=== PATIENT | female | born 1940 | race Caucasian/White ===

== ENCOUNTER 2016-09-26 05:22 | Observation (INO) | payer OTHER ==
[2016-09-26] VITALS (8 sets, daily range): BP systolic 103–127; BP diastolic 66–74; PULSE 62–66; TEMP 36.5–37; O2SAT 94–97; Ht 167.6 cm; Wt 71.5 kg
[~2016-09-26] VITALS: Ht 167.6 cm; Wt 71.5 kg
--- NOTE | 2016-09-26 05:57 | EMERGENCY ROOM VISIT NOTE ---
History Report prepared by Presley: Jesse Kaba Under the Supervision of: Dr. Tamar Bojorquez M.D. First contact with patient: 05:29 Chief Complaint: CARDIAC ASSESSMENT Stated Complaint: TIGHTNING IN BACK,SHOULDER AND UP ALONG JAW History of Present Illness The patient is a 75 year old female who presents to the Emergency Room for an acute cardiac assessment. The patient woke up suddenly this morning with a burning sensation from her abdomen, through her chest and left shoulder and up to the left side of her jaw. The patient was also feeling tachycardic when she woke up. Her symptoms have improved although she still has some pain on the left side of her jaw. The patient also complains of bilateral hand tingling. She denies shortness of breath or pain when she takes a deep breath. She also denies fevers, cough or cold symptoms, or leg swelling. The patient has not noticed any tick bites recently. She had a full dose of aspirin this morning. The patient denies any medical problems other than osteoporosis. She has no history of blood clots or heart disease. The patient has never had a stress test. She is not a smoker. She follows up with Dr. Mathias. Source of History: patient Onset: this morning Position: other (cardiovascular) Quality: other (cardiac assessment) Timing: other (acute) Associated Symptoms: + numbness, No SOB Review of Systems See HPI for pertinent positives & negatives. A total of 10 systems reviewed and were otherwise negative. Past Medical & Surgical Medical Problems: (1) Osteoporosis Family History Patient reports no known family medical history. Social History Smoking Status: Never Smoker Marital Status: Housing Status: lives with family Current/Historical Medications Scheduled Ascorbic Acid (Ascorbic Acid), 1,000 MG PO DAILY Calcium (Chelated Calcium), 400 MG PO DAILY Cholecalciferol (Vitamin D3), 2,000 UNITS PO BID Coenzyme Q10 (Ubidecarenone) (Co Q 10), 100 MG PO DAILY Evening [place] Oil (Evening [place] Oil), 1 CAP PO DAILY Magnesium Oxide (Mag-Ox), 400 MG PO DAILY Milk Thistle (Silybum Marianum (Milk Thistle), Unknown Dose PO DAILY Misc Natural Products (Pycnogenol Complex), 1 TAB PO DAILY Multivitamin (Multivitamin), 3 TAB PO AMPM Council 3 Fatty Acids-Council 6 Fa (Council 3-6-9 Complex), 1 CAP PO DAILY Vitamin D & K (K2 Plus D3 100-1000 Mcg-Unit), 1 TAB PO DAILY Allergies Coded Allergies: No Known Allergies (Unverified , 09/26/16) Physical Exam Vital Signs Date Time Temp Pulse Resp B/P (MAP) Pulse Ox O2 Delivery O2 Flow Rate FiO2 09/26/16 08:04 78 20 143/91 95 Room Air 09/26/16 07:11 73 20 128/69 94 Room Air 09/26/16 06:08 73 20 135/58 95 Room Air 09/26/16 05:48 Room Air 09/26/16 05:44 79 09/26/16 05:26 36.6 91 18 145/66 97 Room Air Physical Exam Vital signs reviewed. General: Well-appearing female, in no significant distress. HEENT: No scleral icterus, PERRLA, neck supple. Atraumatic. Cardiovascular: Regular rate and rhythm, no extra sounds. Pulmonary: Clear to auscultation bilaterally, normal work of breathing. Abdomen: Soft, nontender, nondistended, positive bowel sounds. Musculoskeletal: Atraumatic, no peripheral edema. Neurologic: Patient awake alert and oriented x 3, full strength in all 4 extremities. Cranial nerves 2 through 12 grossly intact. Skin: Warm, dry, no rash Medical Decision & Procedures ER Provider Diagnostic Interpretation: X-ray results as stated below per interpretation by me and the radiologist: CHEST ONE VIEW PORTABLE CLINICAL HISTORY: chest pain dyspnea COMPARISON STUDY: No previous studies for comparison. FINDINGS: The bones soft tissues and hemidiaphragms are normal. The cardiomediastinal silhouette is normal. The lungs are clear. The pulmonary vasculature is normal. IMPRESSION: Negative chest. Electronically signed by: Ephraim Rivera M.D. 09/26/2016 6:54 AM Dictated Date/Time: 09/26/2016 6:54 AM Laboratory Results 09/26/16 05:40 Red Blood Count 5.17, Mean Corpuscular Volume 90.3, Mean Corpuscular Hemoglobin 31.1, Mean Corpuscular Hemoglobin Concent 34.5, Mean Platelet Volume 10.5, Neutrophils (%) (Auto) 34.3, Lymphocytes (%) (Auto) 52.2, Monocytes (%) (Auto) 9.6, Eosinophils (%) (Auto) 3.4, Basophils (%) (Auto) 0.4, Neutrophils # (Auto) 2.28, Lymphocytes # (Auto) 3.49, Monocytes # (Auto) 0.64, Eosinophils # (Auto) 0.23, Basophils # (Auto) 0.03 09/26/16 05:40 Test 09/26/16 05:40 09/26/16 06:06 White Blood Count 6.68 K/uL (4.8-10.8) Red Blood Count 5.17 M/uL (4.2-5.4) Hemoglobin 16.1 g/dL (12.0-16.0) Hematocrit 46.7 % (37-47) Mean Corpuscular Volume 90.3 fL (80-100) Mean Corpuscular Hemoglobin 31.1 pg (25-34) Mean Corpuscular Hemoglobin Concent 34.5 g/dl (32-36) Platelet Count 210 K/uL (130-400) Mean Platelet Volume 10.5 fL (7.4-10.4) Neutrophils (%) (Auto) 34.3 % Lymphocytes (%) (Auto) 52.2 % Monocytes (%) (Auto) 9.6 % Eosinophils (%) (Auto) 3.4 % Basophils (%) (Auto) 0.4 % Neutrophils # (Auto) 2.28 K/uL (1.4-6.5) Lymphocytes # (Auto) 3.49 K/uL (1.2-3.4) Monocytes # (Auto) 0.64 K/uL (0.11-0.59) Eosinophils # (Auto) 0.23 K/uL (0-0.5) Basophils # (Auto) 0.03 K/uL (0-0.2) RDW Standard Deviation 46.0 fL (36.4-46.3) RDW Coefficient of Variation 13.8 % (11.5-14.5) Immature Granulocyte % (Auto) 0.1 % Immature Granulocyte # (Auto) 0.01 K/uL (0.00-0.02) Smudge Cells PRESENT Prothrombin Time 9.8 SECONDS (9.0-12.0) Prothromb Time International Ratio 0.9 (0.9-1.1) Anion Gap 8.0 mmol/L (3-11) Est Creatinine Clear Calc Drug Dose 54.0 ml/min Estimated GFR () 68.9 Estimated GFR (Non- 59.4 BUN/Creatinine Ratio 13.7 (10-20) Calcium Level 9.8 mg/dl (8.5-10.1) Magnesium Level 2.7 mg/dl (1.8-2.4) Total Bilirubin 0.4 mg/dl (0.2-1) Direct Bilirubin mg/dl (0-0.2) Aspartate Amino Transf (AST/SGOT) 36 U/L (15-37) Alanine Aminotransferase (ALT/SGPT) 59 U/L (12-78) Alkaline Phosphatase 125 U/L (45-117) Total Protein 7.2 gm/dl (6.4-8.2) Albumin 3.8 gm/dl (3.4-5.0) Triglycerides Level 999 mg/dl (0-150) Cholesterol Level 307 mg/dl (0-200) HDL Cholesterol 39 mg/dl LDL Cholesterol, Calculated mg/dl VLDL Cholesterol, Calculated mg/dl Cholesterol/HDL Ratio 7.9 Lipase 224 U/L (73-393) Chemistry Specimen Hemolysis Bedside Troponin I < 0.030 ng/ml (0-0.045) Laboratory results per my review. ECG Indication: chest pain Rate (beats per minute): 84 Rhythm: normal sinus Findings: no acute ischemic change, left axis deviation, other (previous anterior infarct) ED Course 0545: Past medical records reviewed. The patient was evaluated in room B10. A complete history and physical examination was performed. 0600: Nitroglycerin 0.4 mg SL. 0710: [facility] the [facility] The patient will be evaluated. Medical Decision Differential Diagnosis: Acute coronary syndrome, pulmonary embolus, aortic dissection, musculoskeletal pain, pneumonia, pleural effusion, pneumothorax Blood Pressure Screening: Patient was found to have a slightly elevated blood pressure due to circumstances. I do not believe that the patient requires hypertension monitoring. Medication Reconciliation: I attest that I have personally reviewed the patient' s current medication list. This patient was evaluated and appeared to be in no significant distress. The patient had received aspirin prior to arrival. Patient was given a nitroglycerin trial. Chest x-ray was performed and is negative. EKG reveals no evidence of acute ischemia. Patient's first set of cardiac enzymes are normal. Laboratory work was reportedly "to lipemic" and required extra centrifuge activity. I'm concerned that this may represent an elevated triglyceride level or marked elevation of the cholesterol. Given the patient's chest discomfort and age, she will be evaluated by the hospitalist service for further cardiac evaluation. She is aware of the plan and agrees. Consults Time Called: 704 Consulting Physician: [facility] Returned Call: 0710 The patient will be evaluated. Impression Primary Impression: Chest pain radiating to upper extremity Scribe Attestation The scribe's documentation has been prepared under my direction and personally reviewed by me in its entirety. I confirm that the note above accurately reflects all work, treatment, procedures, and medical decision making performed by me. Departure Information Dispostion Being Evaluated By Hospitalist Referrals Yordan Mathias M.D. (PCP) Patient Instructions [facility]
[2016-09-26] MEDS ORDERED: NITROGLYCERIN 0.4 MG SL PER TAB CHARGE SL PRN ×2 (06:00→08:15)
[2016-09-26] MEDS ORDERED: MULT-506 PO (06:16)
[2016-09-26 06:17] LABS: HEMATOCRIT 46.7 % (37-47); MEAN CELL VOLUME 90.3 fL (80-100); MEAN CORPUSCULAR HEMOGLOBIN 31.1 pg (25-34); MEAN CORPUSCULAR HGB CONC 34.5 g/dl (32-36); MEAN PLATELET VOLUME 10.5 fL (7.4-10.4); PLATELET COUNT 210 K/uL (130-400); RED BLOOD COUNT 5.17 M/uL (4.2-5.4); WHITE BLOOD COUNT 6.68 K/uL (4.8-10.8)
[2016-09-26] MEDS ORDERED: ASCO100061 PO (06:17)
[2016-09-26] MEDS ORDERED: MAGN400T6 PO (06:19)
[2016-09-26] MEDS ORDERED: CHOL20007 PO (06:19)
[2016-09-26] MEDS ORDERED: [UNRECOGNIZED DRUG - CODE] PO (06:21)
[2016-09-26] MEDS ORDERED: COEN1CAP17 PO (06:23)
[2016-09-26] MEDS ORDERED: EVEN1000 PO (06:24)
[2016-09-26] MEDS ORDERED: MILK150C PO (06:26)
[2016-09-26 06:30] LABS: ALKALINE PHOSPHATASE 125 U/L (45-117); ALT/SGPT 59 U/L (12-78); BLOOD UREA NITROGEN 13 mg/dl (7-18); BUN/CREATININE RATIO 13.7 (10-20); CARBON DIOXIDE 27 mmol/L (21-32); CHLORIDE 109 mmol/L (98-107)
[2016-09-26] MEDS ORDERED: OMEG1CAP71 PO (06:30)
[2016-09-26] MEDS ORDERED: MISCTAB PO (06:31)
[2016-09-26] MEDS ORDERED: VITA1TAB22 PO (06:36)
[2016-09-26 06:56] LABS: AST/SGOT 36 U/L (15-37); CALCIUM 9.8 mg/dl (8.5-10.1); GLUCOSE 100 mg/dl (70-99); POTASSIUM 3.6 mmol/L (3.5-5.1); SODIUM 145 mmol/L (136-145)
--- NOTE | 2016-09-26 06:56 | DIAGNOSTIC IMAGING REPORT ---
CHEST ONE VIEW PORTABLE CLINICAL HISTORY: chest pain dyspnea COMPARISON STUDY: No previous studies for comparison. FINDINGS: The bones soft tissues and hemidiaphragms are normal. The cardiomediastinal silhouette is normal. The lungs are clear. The pulmonary vasculature is normal. IMPRESSION: Negative chest. Electronically signed by: Ephraim Rivera M.D. 09/26/2016 6:54 AM Dictated Date/Time: 09/26/2016 6:54 AM
[2016-09-26 07:28] LABS: CREATININE 0.95 mg/dl (0.60-1.20)
[2016-09-26 07:36] LABS: BASO % 0.4 %; BASO ABS # 0.03 K/uL (0-0.2); COMPLETE YES; EOS % 3.4 %; IG% 0.1 %; LYMPH % 52.2 %; LYMPH ABS # 3.49 K/uL (1.2-3.4); MONO % 9.6 %; NEUT % 34.3 %; SMUDGE CELLS PRESENT
[2016-09-26] MEDS ORDERED: ACETAMINOPHEN 325 MG TAB PO PRN (08:15)
[2016-09-26] MEDS ORDERED: POLYETHYLENE (MIRALAX) 17 GM PACK PO PRN (08:15)
[2016-09-26] MEDS ORDERED: ALUMINUM/MAGNESIUM/SIMETH (MAALOX MAX) 30 ML UDC PO PRN (08:15)
[2016-09-26] MEDS ORDERED: MAGNESIUM HYDROXIDE SUSP 30 ML UDC PO PRN (08:15)
[2016-09-26] MEDS ORDERED: ONDANSETRON INJ 2 MG/ML 2 ML VIAL IV PRN (08:15)
--- NOTE | 2016-09-26 08:49 | History and Physical ---
History & Physical Date & Time of Service: Sep 26, 2016 at 08:28 Chief Complaint: Tightning In Back,Shoulder And Up Along Jaw Primary Care Physician: Yordan Mathias M.D. History of Present Illness Source: patient, clinic records, hospital records This is a 75 y/o female with a history of hyperlipidemia, osteoporosis, osteoarthritis, and hypercalciuria who presented to the ED on 09/26 with atypical chest pain. The patient states that she woke up around 4:30 to 4:45 this morning with a burning sensation in her epigastric area that radiated slightly upward into her lower chest, into her back and shoulders, and up the left side of her jaw. The patient states that at its worst this was only a 2/ 10 in intensity. When she woke up she felt like her heart was racing and felt shaky. She was also slightly nauseous and had tingling in her hands bilaterally. The patient denied any lightheadedness, dizziness, shortness of breath, diaphoresis, or vomiting. She took a full dose aspirin at home prior to coming to the ED. The patient's symptoms have since since resolved except for tingling in her hands, although this is improved too. Patient denies any prior stress tests, catheterizations, or cardiac events. She does have a history of untreated hyperlipidemia, as the patient refuses to take statins or other prescriptions to treat this. The patient denies fevers, chills, sweats, claudication, cough, wheezing, shortness of breath, vomiting, abdominal pain, dysuria, hematuria, urinary retention, paralysis, weakness, and numbness. Past Medical/Surgical History Medical Problems: (1) Osteoporosis Status: Chronic Hyperlipidemia Osteoarthritis H/o hypercalciuria Family History father - hypothyroidism maternal aunt - hypothyroidism multiple family members with hyperlipidemia Social History Smoking Status: Never Smoker Smokeless Tobacco Use: No Alcohol Use: socially (1 glass of wine/day) Drug Use: none Marital Status: Housing status: lives with significant other Occupational Status: retired Multi-Drug Resistant Organisms History of MDRO: No Allergies Coded Allergies: No Known Allergies (Unverified , 09/26/16) Home Medications Scheduled Ascorbic Acid (Ascorbic Acid), 1,000 MG PO DAILY Calcium (Chelated Calcium), 400 MG PO DAILY Cholecalciferol (Vitamin D3), 2,000 UNITS PO BID Coenzyme Q10 (Ubidecarenone) (Co Q 10), 100 MG PO DAILY Evening [place] Oil (Evening [place] Oil), 1 CAP PO DAILY Magnesium Oxide (Mag-Ox), 400 MG PO DAILY Milk Thistle (Silybum Marianum (Milk Thistle), Unknown Dose PO DAILY Misc Natural Products (Pycnogenol Complex), 1 TAB PO DAILY Multivitamin (Multivitamin), 3 TAB PO AMPM [place] 3 Fatty Acids-Camak 6 Fa ([place] 3-6-9 Complex), 1 CAP PO DAILY Vitamin D & K (K2 Plus D3 100-1000 Mcg-Unit), 1 TAB PO DAILY Review of Systems Constitutional: No fever, No chills, No sweats Eyes: No worsening of vision, No eye pain, No diplopia ENT: No hearing loss, No sore throat, No trouble swallowing Respiratory: No cough, No wheezing, No shortness of breath Cardiovascular: + chest pain (radiating from epigastrium), + palpitations, No claudication Abdomen: + pain (mild epigastric burning pain), + nausea (resolved), No vomiting Musculoskeletal: + joint pain (chronic, arthritis), No muscle pain, No calf pain Genitourinary - Female: No dysuria, No urinary retention, No hematuria Neurologic: + numbness/tingling (tingling in hands, denies numbness), No paralysis, No weakness Integumentary: No rash, No itch, No color change Physical Exam Vital Signs Date Time Temp Pulse Resp B/P (MAP) Pulse Ox O2 Delivery O2 Flow Rate FiO2 09/26/16 08:04 78 20 143/91 95 Room Air 09/26/16 07:11 73 20 128/69 94 Room Air 09/26/16 06:08 73 20 135/58 95 Room Air 09/26/16 05:48 Room Air 09/26/16 05:44 79 09/26/16 05:26 36.6 91 18 145/66 97 Room Air General appearance: Well-developed, well-nourished, no apparent distress Head: Normocephalic, atraumatic Eyes: Normal inspection, PERRL, EOMI ENT: Normal ENT inspection, hearing grossly normal, pharynx normal Neck: Supple, no JVD, trachea midline Respiratory/Chest: Lungs clear to auscultation, normal breath sounds, no respiratory distress Cardiovascular: Regular rate & rhythm, no gallop, no murmur Abdomen/GI: Normal bowel sounds, non-tender, soft Extremities/Musculoskeletal: Normal inspection, no calf tenderness, no pedal edema Neurological/Psych: Alert, normal mood/affect, oriented x 3 Skin: Normal color, warm/dry, no rash Diagnostics Laboratory Results Results Past 24 Hours Test 09/26/16 05:40 09/26/16 06:06 Range/Units White Blood Count 6.68 4.8-10.8 K/uL Red Blood Count 5.17 4.2-5.4 M/uL Hemoglobin 16.1 12.0-16.0 g/dL Hematocrit 46.7 37-47 % Mean Corpuscular Volume 90.3 80-100 fL Mean Corpuscular Hemoglobin 31.1 25-34 pg Mean Corpuscular Hemoglobin Concent 34.5 32-36 g/dl Platelet Count 210 130-400 K/uL Mean Platelet Volume 10.5 7.4-10.4 fL Neutrophils (%) (Auto) 34.3 % Lymphocytes (%) (Auto) 52.2 % Monocytes (%) (Auto) 9.6 % Eosinophils (%) (Auto) 3.4 % Basophils (%) (Auto) 0.4 % Neutrophils # (Auto) 2.28 1.4-6.5 K/uL Lymphocytes # (Auto) 3.49 1.2-3.4 K/uL Monocytes # (Auto) 0.64 0.11-0.59 K/uL Eosinophils # (Auto) 0.23 0-0.5 K/uL Basophils # (Auto) 0.03 0-0.2 K/uL RDW Standard Deviation 46.0 36.4-46.3 fL RDW Coefficient of Variation 13.8 11.5-14.5 % Immature Granulocyte % (Auto) 0.1 % Immature Granulocyte # (Auto) 0.01 0.00-0.02 K/uL Smudge Cells PRESENT Sodium Level 145 136-145 mmol/L Potassium Level 3.6 3.5-5.1 mmol/L Chloride Level 109 98-107 mmol/L Carbon Dioxide Level 27 21-32 mmol/L Anion Gap 8.0 3-11 mmol/L Blood Urea Nitrogen 13 7-18 mg/dl Creatinine 0.95 0.60-1.20 mg/dl Est Creatinine Clear Calc Drug Dose 54.0 ml/min Estimated GFR () 68.9 Estimated GFR (Non- 59.4 BUN/Creatinine Ratio 13.7 10-20 Random Glucose 100 70-99 mg/dl Calcium Level 9.8 8.5-10.1 mg/dl Total Bilirubin 0.4 0.2-1 mg/dl Direct Bilirubin 0-0.2 mg/dl Aspartate Amino Transf (AST/SGOT) 36 15-37 U/L Alanine Aminotransferase (ALT/SGPT) 59 12-78 U/L Alkaline Phosphatase 125 45-117 U/L Total Creatine Kinase 115 26-192 U/L Creatine Kinase MB 1.7 0.5-3.6 ng/ml Creatine Kinase MB Ratio 0-3.0 Total Protein 7.2 6.4-8.2 gm/dl Albumin 3.8 3.4-5.0 gm/dl Lipase 224 73-393 U/L Chemistry Specimen Hemolysis Bedside Troponin I < 0.030 0-0.045 ng/ml Diagnostic Radiology Reviewed the following studies and agree with interpretation as follows: Patient Name: NELLA KUMAR Unit Number: [id number] Dictated: 09/26/16653 Transcribed: 09/26/16653 MS Printed Date/Time: [~ rep prt dt]/[~ rep prt tm] [~ rep ct labl] - [~ rep ct ivnm] [facility] [place] [address] Dictated: 09/26/16653 Transcribed: 09/26/16653 MS Printed Date/Time: [~ rep prt dt]/[~ rep prt tm] [~ rep ct labl] - [~ rep ct ivnm] Patient: NELLA KUMAR Address1: [address] [place] [address] Rec: [id number] Address2: [place] [id number] Acct ID: [id number] [facility] Zip: [place] [address] Date: 1940 Sex: F Room/Bed: Ref Phy: Yordan Mathias M.D. SC: DANITA Att Phy: Report #: [id number] Georgie Phy: Yordan Mathias M.D. Test: CXR1P Admit Phy: Soda Dialyzer: CORTEZ Interpreting Phy: Ephraim Rivera M.D. Diagnosis: TIGHTNING IN BACK,SHOULDER AND UP ALONG JAW Ordering Phy: Tamar Bojorquez M.D. Service Date: 09/26/16 Admit Date: 09/26/16 MNE: [id number] CONF: DICTATED BY: Ephraim Rivera M.D.]] CC: Tamar Bojorquez M.D. Guillard, Paul, M.D. Endcc: [~ rep ct add3]] CHEST ONE VIEW PORTABLE CLINICAL HISTORY: chest pain dyspnea COMPARISON STUDY: No previous studies for comparison. FINDINGS: The bones soft tissues and hemidiaphragms are normal. The cardiomediastinal silhouette is normal. The lungs are clear. The pulmonary vasculature is normal. IMPRESSION: Negative chest. Electronically signed by: Ephraim Rivera M.D. 09/26/2016 6:54 AM Dictated Date/Time: 09/26/2016 6:54 AM The status of this report is Signed. Draft = Not yet reviewed or approved by Radiologist. Signed = Reviewed and approved by Radiologist. <AttendingPhy></AttendingPhy> <FamilyPhy>Yordan Mathias M.D.</FamilyPhy> < PrimaryPhy>Yordan Mathias M.D.</PrimaryPhy> <UnitNumber>[id number]</UnitNumber> <VisitNumber>[id number]</VisitNumber> <PatientName>NELLA KUMAR</PatientName > <DateOfBirth>1940</DateOfBirth> <Location>C.EDB</Location> <ServiceDate> 09/26/16</ServiceDate> <MNE>ESINDI</MNE> <OrderingPhy>Tamar Bojorquez M.D. </OrderingPhy> <OrderingPhyMNE>f rep ord dr perez</OrderingPhyMNE> < DictatingPhyMNE>f rep dict dr perez</DictatingPhyMNE> <CCListMNE>f rep ct mne</ CCListMNE> <AdmittingPhyMNE>f pt admit dr perez</AdmittingPhyMNE> <AttendingPhyMNE >f pt attend dr perez</AttendingPhyMNE> <ConsultingPhyMNE>f pt consult dr perez</ConsultingPhyMNE> <FamilyPhyMNE>f pt fam dr perez</FamilyPhyMNE> <OtherPhyMNE>f pt other dr perez</OtherPhyMNE> < PrimaryPhyMNE>f pt prim care dr perez</PrimaryPhyMNE> <ReferringPhyMNE>f pt referring dr perez</ReferringPhyMNE> EKG Reviewed EKG and agree with interpretation as follows: 84 bpm, NSR Impression Assessment and Plan 75 y/o female with a history of hyperlipidemia, osteoporosis, osteoarthritis, and hypercalciuria who presented to the ED on 09/26 with atypical chest pain. Pt afebrile, VSS. EKG shows no ischemic changes. CXR shows no acute disease. Initial troponin negative. Lipase negative. Atypical chest pain -Admit to telemetry for observation -Trend cardiac enzymes q8h x 3 -Fasting lipid panel -EKGs q am and prn chest pain -NPO after midnight for stress testing in the morning -Check magnesium as pt reported feeling "shaky" and is on supplementation. H/ o hypomagnesemia? HLD--this has been untreated as pt refuses medication. Last lipid panel 2010 showed total cholesterol of 295 and LDL of 204 -Pt's blood sample was lipemic per lab, difficulty determining creatinine -Briefly discussed pt's increased cardiovascular risk ?CLL -CBC shows high lymphocyte count and smudge cells -Repeat CBC w/diff and peripheral smear in the morning Osteoporosis -Continue calcium and vitamin D supplements DVT prophylaxis -Enoxaparin 40 mg SC q24h -JAZMIN Lees Code Status -Level V, DO NOT RESUSCITATE Level of Care Telemetry Resuscitation Status DO NOT RESUSCITATE VTE Prophylaxis VTE Risk Assessment Done? Y/N: Yes Risk Level: Moderate Given or contraindicated: Enoxaparin (Lovenox)SQ, T.E.D. Stockings, SCD's Note Attending Attestation & Admission Note: Pt seen/examined, chart reviewed, and care plan d/w BERA Syed. I agree w/ the cherry components of her admission documentation. Pleasant 75yo female with history of untreated hyperlipidemia who presented with the acute onset of epigastric "burning" that radiated into the lower chest area. She had associated jaw discomfort, paresthesias, diaphoresis, and shakiness. She admits to drinking wine last evening as well as eating chicken wings. She denies any recent GERD symptoms or RUQ abdominal pain following meals. She has taken tums in the past for dyspepsia with relief of symptoms. Also mentions feeling extremely fatigued, feverish, and unwell several weeks ago but this resolved after 1-2 days without intervention. She inquires about the possibility of lyme's disease. Confirms that there is a family h/o thyroid disease and hyperlipidemia. PMH, PSH, allergies, meds, sochx, famhx, ros - reviewed VSS gen - nad neck - multiple small nodules in thyroid, no JVD heart - RRR, s1, s2, no murmur lungs - CTA b/l abd - soft, NT, ND, BS+, no HSM ext - no edema labs - lymphocyte predominance on cbc smudge cells on differential BMP nl lipids - trigs >1000 cardiac enzymes neg EKG - NSR, no ST changes cxr - normal A/P: 75yo female with known hyperlipidemia presenting with epigastric "burning" along with a host of other GI/CV symptoms. Work-up thus far negative except for markedly elevated triglycerides. 1. atypical chest pain - much of her history suggests a GI etiology (GERD, etc ) but still need to r/o ischemic heart disease in light of her hyperlipidemia. Serial cardiac enzymes, telemetry, NPO after MN tonight for stress echo in am. Will place on PPI in meantime if this was severe GERD. 2. hypertriglyceridemia - the patient was only fasting about 6 hours prior to the lipid profile and thus may not be accurate. A review of the EMR shows her triglycerides have always been <200 but her LDL has typically been >200 and total cholesterol near 300. Simply repeat the lipide profile in AM. If still with high trigs then will likely need dual therapy (tricor + lovaza or other combo). 3. possible GERD - PPI. 4. family h/o thyroid disease - patient has nodules on exam. Check TSH in am. 5. abnormal CBC - worrisome for CLL. Repeat CBC in am along with peripheral smear. Steve Jolley MD
[2016-09-26 08:50] LABS: MAGNESIUM 2.7 mg/dl (1.8-2.4)
[2016-09-26 09:02] LABS: CHOLESTEROL/HDL RATIO 7.9
[2016-09-26 10:11] LABS: INR 0.9 (0.9-1.1); PROTHROMBIN TIME (PATIENT) 9.8 SECONDS (9.0-12.0)
[2016-09-26] MEDS: MULTIVITAMIN TAB PO SCH (12:45)
[2016-09-26] MEDS: ASPIRIN 81 MG ECTAB PO SCH (12:46)
[2016-09-26] MEDS: MAGNESIUM OXIDE 400 MG TAB PO SCH (12:46)
[2016-09-26] MEDS: CHOLECALCIFEROL 1000 INTER.UNIT TAB PO SCH ×2 (12:47→20:24)
[2016-09-26] MEDS: ENOXAPARIN 40 MG/0.4 ML SYR SC SCH (12:49)
[2016-09-26] MEDS ORDERED: IV FLUIDS COMPLETED PRN (13:45)
[2016-09-26 14:36] LABS: CKMB/CK RATIO 1.4 (0-3.0)
[2016-09-26] MEDS ORDERED: PANTOprazole SOD 40 MG TAB PO STA (18:55)
[2016-09-26 23:21] LABS: CKMB/CK RATIO 0.9 (0-3.0)
[2016-09-27 04:00] VITALS: BP 110/74; PULSE 64; TEMP 36.7; O2SAT 95
[2016-09-27 07:33] LABS: BASO % 0.4 %; BASO ABS # 0.02 K/uL (0-0.2); EOS % 3.4 %; HEMATOCRIT 41.8 % (37-47); IG% 0.4 %; LYMPH % 37.5 %; LYMPH ABS # 1.97 K/uL (1.2-3.4); MEAN CELL VOLUME 89.9 fL (80-100); MEAN CORPUSCULAR HEMOGLOBIN 31.8 pg (25-34); MEAN CORPUSCULAR HGB CONC 35.4 g/dl (32-36); MEAN PLATELET VOLUME 10.2 fL (7.4-10.4); MONO % 9.1 %; NEUT % 49.2 %; PLATELET COUNT 179 K/uL (130-400); RED BLOOD COUNT 4.65 M/uL (4.2-5.4); WHITE BLOOD COUNT 5.25 K/uL (4.8-10.8)
[2016-09-27 07:35] LABS: COMPLETE YES
[2016-09-27 07:45] VITALS: BP 117/67; PULSE 66; TEMP 36.4; O2SAT 94
[2016-09-27 08:03] LABS: BUN/CREATININE RATIO 13.8 (10-20); CALCIUM 9.3 mg/dl (8.5-10.1)
[2016-09-27 08:14] LABS: CHOLESTEROL/HDL RATIO 5.3; THYROID STIMULATING HORMONE 1.14 uIu/ml (0.300-4.500)
[2016-09-27 08:20] LABS: ESTIMATED AVERAGE GLUCOSE 103 mg/dl; HA1C FLAG Normal (Normal)
[2016-09-27] MEDS: MAGNESIUM OXIDE 400 MG TAB PO SCH (09:00)
[2016-09-27] MEDS: ASPIRIN 81 MG ECTAB PO SCH (09:00)
[2016-09-27] MEDS ORDERED: PANTOprazole SOD 40 MG TAB PO SCH (09:00)
[2016-09-27] MEDS: CHOLECALCIFEROL 1000 INTER.UNIT TAB PO SCH (09:00)
[2016-09-27] MEDS: MULTIVITAMIN TAB PO SCH (09:00)
[2016-09-27] MEDS: ENOXAPARIN 40 MG/0.4 ML SYR SC SCH (11:00)
[2016-09-27 11:43] VITALS: BP 119/74; PULSE 78; TEMP 36.9; O2SAT 94
--- NOTE | 2016-09-27 15:57 | Discharge Instructions ---
Discharge Instructions Date of Service Sep 27, 2016. Admission Reason for Admission: Chest Pain Radiating To Upper Extremity Discharge Discharge Diagnosis / Problem: Burning sensation of chest most likely secondary to GERD Discharge Goals Goal(s): Decrease discomfort, Increase independence, Improve disease control Activity Recommendations Activity Limitations: resume your previous activity . Instructions / Follow-Up Instructions / Follow-Up All the workups done in the hospital were normal. Imaging of your heart was normal. Continue with your home medication. Follow up with you primary doctor in 1-2 wks. Recommend antacid for heart burn. Can be discussed with your primary doctor. Recommend statin for high cholesterol, can be discussed with the primary doctor. Current Hospital Diet Patient's current hospital diet: AHA Diet (Heart Healthy) Discharge Diet Recommended Diet: Regular Diet Pending Studies Studies pending at discharge: no Laboratory Results Hemoglobin A1c Test 09/27/16 06:52 Range/Units Estimated Average Glucose 103 mg/dl Hemoglobin A1c 5.2 4.5-5.6 % Lipid Panel Test 09/27/16 06:52 Range/Units Triglycerides Level 213 H 0-150 mg/dl Cholesterol Level 288 H 0-200 mg/dl HDL Cholesterol 54 mg/dl Cholesterol/HDL Ratio 5.3 LDL Cholesterol, Calculated 191 mg/dl Medical Emergencies . Who to Call and When: Medical Emergencies: If at any time you feel your situation is an emergency, please call 911 immediately. . Non-Emergent Contact Non-Emergency issues call your: Primary Care Provider . . "Provider Documentation" section prepared by Srinivasan Clancy. . VTE Core Measure Inpt VTE Proph given/why not?: Enoxaparin (Lovenox)EDEN, Luisana. Jovan, SCD's
[2016-09-27 16:20] VITALS: BP 119/74; PULSE 78; TEMP 36.9; O2SAT 94
--- NOTE | 2016-09-27 22:44 | Discharge Summary ---
Discharge Summary Date of Service Sep 27, 2016. (Srinivasan Clancy MD) Discharge Summary Admission Date: Sep 26, 2016 at 08:28 Discharge Date: Sep 27, 2016 Discharge Disposition: Home Principal Diagnosis: burning sensation of chest most likely secondary to acid reflux (Srinivasan Clnacy MD) Medication Reconciliation Continued Medications: Ascorbic Acid (Ascorbic Acid) 1,000 Mg Tab 1000 MG PO DAILY Calcium (Chelated Calcium) 200 Mg Tab 400 MG PO DAILY Cholecalciferol (Vitamin D3) 2,000 Unit Tab 2000 UNITS PO BID, TAB Coenzyme Q10 (Ubidecarenone) (Co Q 10) 100 Mg Cap 100 MG PO DAILY Evening Corona Oil (Evening Corona Oil) 1 Cap Cap 1 CAP PO DAILY Magnesium Oxide (Mag-Ox) 400 Mg Tab 400 MG PO DAILY, TAB Milk Thistle (Silybum Marianum (Milk Thistle) Unknown Strength Cap Unknown Dose PO DAILY Misc Natural Products (Pycnogenol Complex) 1 Tab Tab 1 TAB PO DAILY Multivitamin (Multivitamin) Tab 3 TAB PO AMPM, TAB Roma 3 Fatty Acids-Roma 6 Fa (Roma 3-6-9 Complex) 1 Cap Cap 1 CAP PO DAILY Vitamin D & K (K2 Plus D3 100-1000 Mcg-Unit) 1 Tab Tab 1 TAB PO DAILY Discharge Exam Patient was seen at the bedside. No acute event overnight. She was comfortably lying down on her bed. Denies any complaints. Review of Systems: Constitutional: No fever, No chills, No weakness Respiratory: No cough, No sputum, No wheezing, No shortness of breath, No dyspnea on exertion Cardiovascular: No chest pain Abdomen: No pain, No nausea, No vomiting, No diarrhea, No constipation Musculoskeletal: No muscle pain Integumentary: No rash Physical Exam: General Appearance: WD/WN, no apparent distress Neck: supple, trachea midline Respiratory/Chest: chest non-tender, lungs clear, normal breath sounds, no respiratory distress, no accessory muscle use Cardiovascular: regular rate, rhythm, no edema Abdomen / GI: normal bowel sounds, non tender, soft Extremities: normal inspection, no pedal edema Neurologic/Psychiatric: alert, normal mood/affect, oriented x 3 Skin: normal color, warm/dry, no rash (Srinivasan Clancy MD) Review of Systems: Constitutional: No fever Respiratory: No shortness of breath Cardiovascular: No chest pain Abdomen: No pain Physical Exam: General Appearance: no apparent distress Respiratory/Chest: lungs clear, no respiratory distress Cardiovascular: regular rate, rhythm Abdomen / GI: normal bowel sounds, non tender, soft Neurologic/Psychiatric: alert, oriented x 3 Skin: warm/dry (Briseyad Clement M.D.) Hospital Course This is a 75 y/o female with a history of hyperlipidemia, osteoporosis, osteoarthritis, and hypercalciuria who presented to the ED complaining of burning sensation on epigastric area radiating to her jaw and back. She was also slightly nauseous and had tingling in her hands bilaterally. The patient denied any lightheadedness, dizziness, shortness of breath, diaphoresis, or vomiting. She took a full dose aspirin at home prior to coming to the ED. EKG shows no ischemic changes. CXR shows no acute disease. Initial troponin negative. Lipase negative. Patient denies any prior stress tests, catheterizations, or cardiac events. She does have a history of untreated hyperlipidemia, as the patient refuses to take statins or other prescriptions to treat this. The patient denies fevers, chills, sweats, claudication, cough, wheezing, shortness of breath, vomiting, abdominal pain, dysuria, hematuria, urinary retention, paralysis, weakness, and numbness. * Atypical chest pain - Patient was admitted to the Tele for observation. Serial cardiac enzymes were negative. Stress Echo was unremarkable. On tele there was no acute event. Given the nature of the pain and all the work ups are normal, it is very less the etiology of the chest pain/burning sensation is cardiac. It is most likely secondary to GERD. Patient was recommended to take antacid and follow up with the primary doctor. * HLD - This has been untreated as pt refuses medication. Lipid panel on this admission showed total cholesterol of 288 and LDL of 191 and cholesterol 288. Recommended statin and this can be manage as outpatient by the primary doctor. * On admission patient had elevated absolute lymphocyte and some smudge. On repeat blood work lymphocyte count was normal. Lymphocytes and red cell morphology were unremarkable. The elevated lymphocytes most likely a transient reactive lymphocytosis which is common in acute chest pain. Total Time Spent: Greater than 30 minutes This includes examination of the patient, discharge planning, medication reconciliation, and communication with other providers. (Srinivasan Clancy MD) Resident Physician Supervision Note: I was present with Dr. Clancy in bedside. I verified the cherry history and physical , reviewed labs and image studies, discussed the case with the resident and agree with the findings and care plan. Total Time Spent: Greater than 30 minutes (35) (Briseyda Clement M.D.) Discharge Instructions Please refer to the electronic Patient Visit Report (Discharge Instructions) for additional information. (Srinivasan Clancy MD) Additional Copies To Yordan Mathias M.D.
--- NOTE | 2016-09-28 15:46 | EXERCISE STRESS ECHO ---
*NOTICE TO RECEIVING REPUBL[employer] AGENCY This information is strictly Confidential and protected under [place] law. [place] law prohibits you from making any further disclosure of this information unless further disclosure is expressly permitted by the written consent of the person to whom it pertains or is authorized by law. A general authorization for the release of medical or other information is not sufficient for this purpose. Hospital accepts no responsibility if the information is made available to any other person, INCLUDING THE PATIENT. Interpretation Summary * Name: NELLA KUMAR Study Date: 09/27/2016 02:26 PM BP: 135/77 mmHg * Patient Location: [facility]\S\N288\S\2 HR: 88 * : 1940 (M/d/yyyy) Gender: Female Height: 66 in * Age: 75 yrs Ethnicity: [place] Weight: 157 lb * Ordering Physician: Briseyda Clement * Referring Physician: Self, Referred * Performed By: Elzbieta Olivas RDCS * * Reason For Study: Chest pain * BSA: 1.8 m2 * -- Conclusions -- * Normal stress echocardiogram at 9.1 METS and a peak heart rate of >100% predicted maximum. * No exercise induced chest pain. * No ECG changes. * Baseline echocardiogram notes normal left ventricular systolic function. and evidence of diastolic dysfunction. Procedure Details * ECHOEX, CPT #[id number] * ECHO DOPPLER, CPT #[id number] * ECHO COLOR FLOW, CPT #[id number] Left Ventricle * The left ventricle is normal in size. * There is borderline concentric left ventricular hypertrophy. * Ejection Fraction = >70 %. * The left ventricle is hyperdynamic. * Resting wall motion: Normal. Stress wall motion: Appropriate increase in Left ventricular systolic function and decrease in cavity size. No stress induced segmental wall motion abnormalities. Right Ventricle * The right ventricle is not well visualized. * The right ventricular systolic function is normal as assessed by tricuspid annular plane systolic excursion (TAPSE) (normal >1.5 cm). Atria * The left atrial size is normal. * Right atrial size is normal. * There is no evidence of atrial septal defect, but resolution does not allow assessment for a patent foramen ovale. Mitral Valve * The mitral valve is grossly normal. * There is no mitral valve stenosis. * There is mild mitral regurgitation. Tricuspid Valve * The tricuspid valve is not well visualized, but is grossly normal. * There is no tricuspid stenosis. * Significant tricuspid regurgitation is absent. Aortic Valve * The aortic valve is trileaflet. * The aortic valve opens well. * No hemodynamically significant valvular aortic stenosis. * No aortic regurgitation is present. Pulmonic Valve * The pulmonary valve is not well seen, but the Doppler examination is normal without significant regurgitation or stenosis. Great Vessels * The aortic root is normal size. Pericardium * There is no pericardial effusion. Stress Parameters * The baseline ECG displays normal sinus rhythm. * Stress ECG: No ST changes. No arrhythmias. * The stress portion of this study was personally supervised by the undersigned interpreting physician. * Rest heart rate was '88' BPM. * Rest blood pressure was '135/77' * Maximum heart rate achieved was 164 bpm. * Maximum heart rate was 111 % of maximum age-predicted heart rate. * Maximum blood pressure was '194/90' * Total exercise time was '7:22' * Maximum exercise MET level achieved was '9.10' METS * Maximum treadmill speed was '3.40' miles per hour. * Maximum treadmill elevation was '14.00'% grade. * Exercise was terminated due to 'achieving target heart rate' Left Ventricular Diastolic Function * Grade I diastolic dysfunction, (abnormal relaxation pattern). MMode 2D Measurements and Calculations IVSd 0.94 cm LVIDd 3.3 cm LVIDs 1.9 cm LVPWd 1.1 cm IVS/LVPW 0.89 FS 42.3 % EDV(Teich) 43.3 ml ESV(Teich) 11.0 ml EF(Teich) 74.6 % EDV(cubed) 35.1 ml ESV(cubed) 6.7 ml EF(cubed) 80.8 % LV mass(C)d 92.9 grams LV mass(C)dI 51.5 grams/m\S\2 SV(Teich) 32.3 ml SI(Teich) 17.9 ml/m\S\2 SV(cubed) 28.4 ml SI(cubed) 15.7 ml/m\S\2 Ao root diam 2.8 cm Ao root area 6.2 cm\S\2 ACS 1.9 cm asc Aorta Diam 2.1 cm LVOT diam 2.0 cm LVOT area 3.0 cm\S\2 LVAd ap4 20.5 cm\S\2 LVLd ap4 7.0 cm EDV(MOD-sp4) 49.9 ml EDV(sp4-el) 51.0 ml LVAs ap4 9.7 cm\S\2 LVLs ap4 5.8 cm ESV(MOD-sp4) 14.6 ml ESV(sp4-el) 13.7 ml EF(MOD-sp4) 70.7 % EF(sp4-el) 73.1 % LVAd ap2 16.9 cm\S\2 LVLd ap2 5.4 cm EDV(MOD-sp2) 42.3 ml EDV(sp2-el) 44.7 ml LVAs ap2 8.2 cm\S\2 LVLs ap2 4.4 cm ESV(MOD-sp2) 12.6 ml ESV(sp2-el) 12.8 ml EF(MOD-sp2) 70.1 % EF(sp2-el) 71.3 % LVLd %diff -28.33 % EDV(MOD-bp) 52.1 ml LVLs %diff -31.20 % ESV(MOD-bp) 15.4 ml EF(MOD-bp) 70.4 % SV(MOD-sp4) 35.3 ml SI(MOD-sp4) 19.6 ml/m\S\2 SV(MOD-sp2) 29.7 ml SI(MOD-sp2) 16.5 ml/m\S\2 SV(MOD-bp) 36.7 ml SI(MOD-bp) 20.3 ml/m\S\2 SV(sp4-el) 37.2 ml SI(sp4-el) 20.6 ml/m\S\2 SV(sp2-el) 31.9 ml SI(sp2-el) 17.7 ml/m\S\2 Doppler Measurements and Calculations MV E max alhaji 56.3 cm/sec MV A max alhaji 77.6 cm/sec MV E/A 0.73 MV dec time 0.37 sec Ao V2 max 98.2 cm/sec Ao max PG 3.9 mmHg Ao max PG (full) 1.8 mmHg IZZY(V,A) 2.2 cm\S\2 IZZY(V,D) 2.2 cm\S\2 LV V1 max PG 2.1 mmHg LV V1 max 72.2 cm/sec PA V2 max 88.2 cm/sec PA max PG 3.1 mmHg PA acc slope 517.8 cm/sec\S\2 PA acc time 0.10 sec PI max alhaji 138.5 cm/sec PI max PG 7.7 mmHg PI dec slope 310.3 cm/sec\S\2 PI P1/2t 130.7 msec TR max alhaji 199.7 cm/sec PA pr(Accel) 33.1 mmHg
== END 2016-09-27 18:15 | disposition home or self-care (01) ==
LOC: C.EDB 05:24 → C.MED 08:28 → ENRESERV 08:58
PROVIDERS: ADMIT Internal Medicine; ATTEND Family Medicine
DX: R07.89 Other chest pain (principal); E78.5 Hyperlipidemia, unspecified; M81.0 Age-related osteoporosis without current pathological fracture; Z79.899 Other long term (current) drug therapy; M19.90 Unspecified osteoarthritis, unspecified site; Z83.49 Family history of other endocrine, nutritional and metabolic diseases

== ENCOUNTER → 2016-10-06 | Outpatient (CLI) | payer OTHER ==
[~2016-10-06] MED LIST: ASCO100061 PO; CHOL20007 PO; COEN1CAP17 PO; EVEN1000 PO; MAGN400T6 PO; MILK150C PO; MISCTAB PO; MULT-506 PO; OMEG1CAP71 PO; VITA1TAB22 PO; [UNRECOGNIZED DRUG - CODE] PO
--- NOTE | 2016-10-06 10:50 | DIAGNOSTIC IMAGING REPORT ---
THYROID ULTRASOUND HISTORY: There are nodular THYROID NODULE COMPARISON: None. FINDINGS: Right lobe: Maximum dimension 3.8 cm. Heterogeneous internal architecture. Lower pole nodule evident maximum dimension of 8 mm. Left lobe: Maximum dimension 5.1 cm. Heterogeneous texture. Dominant nodule lower pole measuring 1.7 x 1.5 cm. Isthmus: No nodules. IMPRESSION: 1. Multinodular thyroid. 2. Dominant nodule lower pole left thyroid measuring 1.7 x 1.5 cm. 3. Fine-needle aspiration of this nodule under ultrasound guidance is suggested Electronically signed by: Ephraim Rivera M.D. 10/06/2016 10:49 AM Dictated Date/Time: 10/06/2016 10:47 AM
== END | disposition home or self-care (01) ==
LOC: C.ULTRBC 10:17
PROVIDERS: ATTEND Physician Assistant Medical
DX: E04.1 Nontoxic single thyroid nodule (principal)

== ENCOUNTER → 2016-10-12 | Outpatient (CLI) | payer OTHER ==
--- NOTE | 2016-10-12 13:46 | DIAGNOSTIC IMAGING REPORT ---
ULTRASOUND-GUIDED FINE-NEEDLE ASPIRATION BIOPSY OF A LEFT LOBE THYROID NODULE CLINICAL HISTORY: Left lobe thyroid nodule COMPARISON STUDY: 10/06/2016 FINDINGS: The risks the procedure were explained the patient and informed consent was obtained. The patient was prepped in a sterile fashion. The skin was anesthetized 1% lidocaine. The left lobe thyroid nodule in question was sampled x3 with a 25-gauge needle under ultrasound guidance. Initial pathologic review indicates satisfactory material for diagnosis. IMPRESSION: Successful ultrasound-guided fine-needle aspiration biopsy of a dominant lower pole left lobe thyroid nodule. Electronically signed by: Bautista Vang M.D. 10/12/2016 1:45 PM Dictated Date/Time: 10/12/2016 1:43 PM
== END | disposition home or self-care (01) ==
LOC: C.ULTR 12:36
PROVIDERS: ATTEND Physician Assistant Medical
DX: E04.1 Nontoxic single thyroid nodule (principal)

== ENCOUNTER → 2016-11-22 | Outpatient (CLI) | payer OTHER ==
[2016-11-22 17:29] LABS: BLOOD UREA NITROGEN 19 mg/dl (7-18); CALCIUM 9.5 mg/dl (8.5-10.1); CARBON DIOXIDE 26 mmol/L (21-32); CHLORIDE 111 mmol/L (98-107); CREATININE 0.84 mg/dl (0.60-1.20); GLUCOSE 79 mg/dl (70-99); POTASSIUM 3.9 mmol/L (3.5-5.1); SODIUM 143 mmol/L (136-145)
== END | disposition home or self-care (01) ==
LOC: C.LAB1850 16:00
PROVIDERS: ATTEND Internal Medicine Rheumatology
DX: M81.0 Age-related osteoporosis without current pathological fracture (principal); E55.9 Vitamin D deficiency, unspecified; E83.52 Hypercalcemia

== ENCOUNTER → 2016-11-22 | Outpatient (CLI) | payer OTHER | END | disposition home or self-care (01) | LOC: C.MAMM 14:04 | PROVIDERS: ATTEND Internal Medicine Rheumatology | DX: M81.0 Age-related osteoporosis without current pathological fracture (principal); E83.52 Hypercalcemia; M85.89 Other specified disorders of bone density and structure, multiple sites; E55.9 Vitamin D deficiency, unspecified ==

== ENCOUNTER → 2017-03-31 | Outpatient (CLI) | payer OTHER ==
--- NOTE | 2017-03-31 11:20 | DIAGNOSTIC IMAGING REPORT ---
LUMBAR SPINE 2 OR 3 VIEWS CLINICAL HISTORY: OSETOPOROSIS,UNSPECIFIED PATHOLOGICAL FRACTURE PRE COMPARISON STUDY: None FINDINGS: Rotational scoliosis. Slight wedge deformity superior endplate L4 and L1. No evidence for a major compression deformity. Moderate degenerative disc changes throughout. No evidence for subluxation. IMPRESSION: Slight age-indeterminate wedge deformity superior endplate L1 and L4. Rotational scoliosis. Mild osteopenia The above report was generated using voice recognition software. It may contain grammatical, syntax or spelling errors. Electronically signed by: Ephraim Rivera M.D. 03/31/2017 11:18 AM Dictated Date/Time: 03/31/2017 11:16 AM
--- NOTE | 2017-03-31 11:23 | DIAGNOSTIC IMAGING REPORT ---
THORACIC SPINE 3 VIEWS ROUTINE HISTORY: Pain. Fracture. OSETOPOROSIS,UNSPECIFIED PATHOLOGICAL FRACTURE PRE COMPARISON: None. FINDINGS: Scoliosis of the thoracic spine. Moderate degenerative disc changes throughout. Slight wedge deformity superior endplate L1 and possibly T12, considered nonacute. No major compression deformity. Minimal/mild osteopenia. No subluxation. Moderate degenerative disc change throughout IMPRESSION: 1. Slight wedge deformity superior endplate L1 and possibly T12. 2. These findings are considered old. 3. Scoliosis. 4. Degenerative disc change throughout the entire thoracic region. 5. Mild osteopenia. The above report was generated using voice recognition software. It may contain grammatical, syntax or spelling errors. Electronically signed by: Ephraim Rivera M.D. 03/31/2017 11:22 AM Dictated Date/Time: 03/31/2017 11:20 AM
== END | disposition home or self-care (01) ==
LOC: C.RAD1850 10:51
PROVIDERS: ATTEND Internal Medicine
DX: M81.0 Age-related osteoporosis without current pathological fracture (principal); M53.86 Other specified dorsopathies, lumbar region; M41.9 Scoliosis, unspecified

== ENCOUNTER → 2017-04-01 | Outpatient (CLI) | payer OTHER ==
[2017-04-01 10:50] LABS: ALT/SGPT 52 U/L (12-78); BLOOD UREA NITROGEN 21 mg/dl (7-18); CALCIUM 9.7 mg/dl (8.5-10.1); CARBON DIOXIDE 26 mmol/L (21-32); GLUCOSE 103 mg/dl (70-99); POTASSIUM 4.1 mmol/L (3.5-5.1); SODIUM 140 mmol/L (136-145)
[2017-04-01 10:54] LABS: ALKALINE PHOSPHATASE 91 U/L (45-117); AST/SGOT 23 U/L (15-37); PHOSPHORUS 3.2 mg/dl (2.5-4.9); TOTAL PROTEIN 7.2 gm/dl (6.4-8.2)
== END | disposition home or self-care (01) ==
LOC: C.LAB1850 09:05
PROVIDERS: ATTEND Internal Medicine
DX: M81.0 Age-related osteoporosis without current pathological fracture (principal)

== ENCOUNTER → 2017-04-12 | Outpatient (CLI) | payer OTHER ==
[2017-04-12 16:08] LABS: ALBUMIN 4.1 gm/dl (3.4-5.0); BLOOD UREA NITROGEN 19 mg/dl (7-18); CALCIUM 10.3 mg/dl (8.5-10.1); CARBON DIOXIDE 29 mmol/L (21-32); CREATININE 0.99 mg/dl (0.60-1.20); GLUCOSE 100 mg/dl (70-99); POTASSIUM 3.9 mmol/L (3.5-5.1); SODIUM 139 mmol/L (136-145)
[2017-04-12 16:11] LABS: ALKALINE PHOSPHATASE 93 U/L (45-117); ALT/SGPT 57 U/L (12-78); AST/SGOT 28 U/L (15-37); CHOLESTEROL 320 mg/dl (0-200); LDL CHOLESTEROL CALCULATED 209 mg/dl; TOTAL PROTEIN 7.4 gm/dl (6.4-8.2)
== END | disposition home or self-care (01) ==
LOC: C.LABBC 10:17
PROVIDERS: ATTEND Internal Medicine
DX: E78.5 Hyperlipidemia, unspecified (principal)

== ENCOUNTER → 2017-08-02 | Outpatient (CLI) | payer OTHER | END | disposition home or self-care (01) | LOC: C.LABSPEC 16:22 | PROVIDERS: ATTEND Internal Medicine Rheumatology | DX: N81.0 Urethrocele (principal); E83.52 Hypercalcemia ==